=== PATIENT | female | born 1980 | race African-American/Black ===

== ENCOUNTER 2018-10-12 14:43 | Inpatient (IN) | payer OTHER ==
[~2018-10-12] VITALS: Ht 157.5 cm; Wt 57.4 kg
[2018-10-12 16:25] VITALS: PULSE 66
[2018-10-12 16:30] VITALS: Ht 157.5 cm; Wt 57.4 kg
[2018-10-12 16:32] VITALS: BP 124/78; PULSE 61; RESP 18
[2018-10-12] MEDS ORDERED: no medication (18:17)
--- NOTE | 2018-10-12 18:48 | HP ---
Date/Time of Note Date/Time of Note DATE: 10/12/18 TIME: 18:35 Assessment/Plan VTE Prophylaxis SCD applied (from Nsg): Yes Pharmacological prophylaxis: NA/contraindicated Pharm contraindication: low risk/ambulating Lines/Catheters IV Catheter Type (from Nrs): Saline Lock Assessment/Plan Assessment/Plan 38 yo woman history of migraine presents with headache and loss of balance #Headache #Loss of balance - Lesion appears to be either cerebellar, R vestibular, or R inner or middle ear. - Basic CBC, CMP, TSH. - Start with MRI brain to rule out stroke. - In case of vestibular dysfunction will plan for high dose steroid taper - Depending on MRI results will consider neurology consult. - Excedrin prn migraine symptoms. SCD: DVT GI: None HPI/ROS Admit Date/Time Admit Date/Time Oct 12, 2018 at 16:07 Hx of Present Illness Ms. Monaco is a soft-spoken 38 yo woman with history of migraine who presents with headache and loss of balance. She was in her usual state of health until 3 days ago when she developed progre ssive onset, throbbing, L sided headache that migrated to the L side of the head. Headache improves with OTC analgesics but dizziness has progressively worsened. Specifically, feels R face numbness, loss of balance, R ear tinnitus, and slightly diminished R sided hearing. During this time also poor appetite, nauseated, and had one episode of nonbloody emesis. She typically gets migraine headache monthly with her menses; resolves with [facility] brand OTC relief (acetaminophen+ASA+caffine). Has tried sumatriptan in the past but it caused troublesome visual hallucinations. 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 Transferred to [facility] for insurance reasons. ROS She denies fever, chills, night sweats, weight loss; denies sore throat, nasal congestion, or other URI symptoms; denies vision changes, vertigo; denies chest pain/pressure/palpitations, dyspnea, cough, abdominal pain, diarrhea, constipation, dysuria, hematuria. PMH/Family/Social Past Medical History Migraine headaches Coded Allergies: No Known Allergy (Unverified , 10/12/18) Past Surgical History Past Surgical Hx: no surgical history Family History Significant Family History: no pertinent family hx Social History Alcohol Use: none Smoking Status: Never smoker Drug Use: none Exam/Review of Systems Vital Signs Vitals Vital Signs Date Temp Pulse Resp B/P (MAP) Pulse Ox O2 O2 Flow FiO2 Time Delivery Rate 10/12/18 97.8 61 18 124/78 95 Room Air 16:32 (93) Exam Exam Gen: Well developed young woman in no acute distress Eyes: PERRL, no icterus. No nystagmus. HEENT: Moist mucous membranes, clear oropharynx, no posterior pharyngeal erythema or exudates. Neck: Supple, nontender, no lymphadenopathy Card: Regular rate and rhythm, no murmurs Pulm: Clear to auscultation bilaterally Abd: Soft, nontender, nondistended. Ext: No cyanosis/clubbing/edema NEURO CN: Diminished R face sensation to light touch. Diminished R ear hearing to finger rub. Otherwise EOMI, facial muscles move symmetrically, tongue midline, head turn and shoulder shrug strong. Balance: [id number] rapid bilaterally with no dysmetria. Motor: 5/5 strength in all test upper and lower muscle groups Gait: Patient unable to stand without falling to the R side, even with eyes open. Able to maintain balance only with a balancing hand on each shoulder. Gait not attempted. SHANNON MAIER MD Oct 12, 2018 18:46
[2018-10-12] MEDS ORDERED: ACETAMINOPHEN 325 MG TAB PO PRN (19:00)
[2018-10-12] MEDS ORDERED: ONDANSETRON 4 MG INJ IV PRN (19:00)
[2018-10-12] MEDS ORDERED: ASA/ACETAMINOPHEN/CAFF TAB PO PRN (19:00)
[2018-10-12] MEDS ORDERED: NACL 0.9% 3 ML SYG IV SCH (19:00)
[2018-10-12 20:00] VITALS: BP 112/67; PULSE 68; RESP 19
[2018-10-13] VITALS: BP 116/69; PULSE 70; PULSE 76; RESP 19
[2018-10-13 04:00] VITALS: BP 107/54; PULSE 61; PULSE 65; RESP 19
[2018-10-13 07:32] VITALS: BP 110/63; PULSE 65; RESP 19
[2018-10-13 08:00] VITALS: PULSE 66
--- NOTE | 2018-10-13 09:49 | PDOCDIS ---
Discharge Instructions DIAGNOSIS Discharge Diagnosis Migraine with aura CONDITION [id number] Patient Condition: [id number] Good HOME CARE INSTRUCTIONS: [id number] Diet Instructions: [id number] Regular ACTIVITY: [id number] Activity Restrictions: [id number] No Restrictions FOLLOW UP/APPOINTMENTS Follow-up Plan 1. Make an appointment with your primary care doctor in 1-2 weeks. 2. For migraine with severe headache take ibuprofen or Excedrin as tolerated. 3. If you develop new muscle weakness, numbness, or facial droop; return to the emergency room. SHANNON MAIER MD Oct 13, 2018 09:49
--- NOTE | 2018-10-13 14:25 | RADRPT ---
Vent Rate: 68 bpm RR Interval: 876 msec HI Interval: 165 msec QRS Duration: 83 msec QT Interval: 386 msec QTC Interval: 412 msec P-R-T Wallace: 70 - 61 - 55 degrees Sinus rhythm...normal P axis, V-rate 50- 99 RSR' in V1 or V2, probably normal variant...small R' only Electronically Signed By: Tanner Lerma
--- NOTE | 2018-10-13 16:40 | DS ---
Date/Time of Note Date/Time of Note DATE: 10/13/18 TIME: 16:38 Discharge Summary Admission/Discharge Info Admit Date/Time Oct 12, 2018 at 16:07 Discharge Date/Time Oct 13, 2018 at 11:30 Discharge Diagnosis Migraine with aura Patient Condition: Good Consults None Procedures None Hx of Present Illness Ms. Monaco is a soft-spoken 38 yo woman with history of migraine who presents with headache and loss of balance. She was in her usual state of health until 3 days ago when she developed progressive onset, throbbing, L sided headache that migrated to the L side of the head. Headache improves with OTC analgesics but dizziness has progressively worsened. Specifically, feels R face numbness, loss of balance, R ear tinnitus, and slightly diminished R sided hearing. During this time also poor appetite, nauseated, and had one episode of nonbloody emesis. She typically gets migraine headache monthly with her menses; resolves with [facility] brand OTC relief (acetaminophen+ASA+caffine). Has tried sumatriptan in the past but it caused troublesome visual hallucinations. 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 Transferred to [facility] for insurance reasons. Hospital Course An MRI brain was done. It was negative for ischemia or other concerning findings. CBC, BMP were unremarkable. The next morning the patient's symptoms had completely resolved. She was ambulating fine without loss of balance and Romberg test was negative. Home Meds Reported Medications [no medication] No Conflict Check 10/12/18 Follow-up Plan 1. Make an appointment with your primary care doctor in 1-2 weeks. 2. For migraine with severe headache take ibuprofen or Excedrin as tolerated. 3. If you develop new muscle weakness, numbness, or facial droop; return to the emergency room. Primary Care Provider Not On Staff Doctor Time spent on discharge: > 30 minutes Pending Labs Laboratory Tests Test 10/12/18 18:56 10/13/18 05:08 White Blood Count 5.2 10^3/ul (4.8-10.8) 5.6 10^3/ul (4.8-10.8) Red Blood Count 4.13 10^6/ul (4.20-5.40) 3.96 10^6/ul (4.20-5.40) Hemoglobin 11.9 g/dl (12.0-16.0) 11.7 g/dl (12.0-16.0) Hematocrit 36.8 % (37.0-47.0) 35.3 % (37.0-47.0) Mean Corpuscular Volume 89.1 fl (82.0-101.0) 89.1 fl (82.0-101.0) Mean Corpuscular 28.8 pg (29.0-33.0) 29.5 pg (29.0-33.0) Hemoglobin Mean Corpuscular 32.3 g/dl (32.0-37.0) 33.1 g/dl (32.0-37.0) Hemoglobin Concent Red Cell Distribution 12.4 % (11.5-14.5) 12.5 % (11.5-14.5) Width Platelet Count 235 10^3/UL (140-415) 217 10^3/UL (140-415) Mean Platelet Volume 11.1 fl (7.4-10.4) 11.5 fl (7.4-10.4) Immature Granulocytes % 0.200 % (0.001-0.429) 0.400 % (0.001-0.429) Neutrophils % 46.9 % (39.0-77.0) 36.6 % (39.0-77.0) Lymphocytes % 44.3 % (15.0-51.0) 52.9 % (15.0-51.0) Monocytes % 6.6 % (0.0-11.0) 8.1 % (0.0-11.0) Eosinophils % 1.4 % (0.0-7.0) 1.3 % (0.0-7.0) Basophils % 0.6 % (0.0-2.0) 0.7 % (0.0-2.0) Nucleated Red Blood Cells 0.0 /100WBC (0.0-0.0) 0.0 /100WBC (0.0-0.0) % Immature Granulocytes # 0.010 10^3/ul (0.0-0.031) 0.020 10^3/ul (0.0-0.031) Neutrophils # 2.4 10^3/ul (1.6-7.5) 2.0 10^3/ul (1.6-7.5) Lymphocytes # 2.3 10^3/ul (0.8-2.9) 2.9 10^3/ul (0.8-2.9) Monocytes # 0.3 10^3/ul (0.3-0.9) 0.5 10^3/ul (0.3-0.9) Eosinophils # 0.1 10^3/ul (0.0-0.5) 0.1 10^3/ul (0.0-0.5) Basophils # 0.0 10^3/ul (0.0-0.1) 0.0 10^3/ul (0.0-0.1) Nucleated Red Blood Cells 0.0 10^3/ul (0.0-0.0) 0.0 10^3/ul (0.0-0.0) # Sodium Level 142 mmol/L (135-144) 143 mmol/L (135-144) Potassium Level 3.5 mmol/L (3.5-5.1) 3.8 mmol/L (3.5-5.1) Chloride Level 106 mmol/L (97-110) 105 mmol/L (97-110) Carbon Dioxide Level 28 mmol/L (21-31) 26 mmol/L (21-31) Anion Gap 8 (5-13) 12 (5-13) Blood Urea Nitrogen 10 mg/dl (7-20) 12 mg/dl (7-20) Creatinine 0.53 mg/dl (0.44-1.00) 0.51 mg/dl (0.44-1.00) Est Glomerular Filtrat > 60 mL/min (>60) > 60 mL/min (>60) Rate mL/min Glucose Level 107 mg/dl (70-220) 76 mg/dl (70-220) Calcium Level 9.7 mg/dl (8.4-10.2) 9.4 mg/dl (8.4-10.2) Phosphorus Level 4.0 mg/dl (2.5-4.9) 4.8 mg/dl (2.5-4.9) Magnesium Level 2.0 mg/dl (1.7-2.5) 1.9 mg/dl (1.7-2.5) Total Bilirubin 0.2 mg/dl (0.2-1.3) 0.2 mg/dl (0.2-1.3) Direct Bilirubin 0.00 mg/dl (0.00-0.20) 0.00 mg/dl (0.00-0.20) Indirect Bilirubin 0.2 mg/dl (0-1.1) 0.2 mg/dl (0-1.1) Aspartate Amino 18 IU/L (15-46) 15 IU/L (15-46) Transf (AST/SGOT) Alanine 16 IU/L (13-69) 17 IU/L (13-69) Aminotransferase (ALT/SGPT ) Alkaline Phosphatase 53 IU/L (42-121) 52 IU/L (42-121) Total Protein 7.2 g/dl (6.1-8.1) 6.9 g/dl (6.1-8.1) Albumin 4.3 g/dl (3.3-4.9) 4.0 g/dl (3.3-4.9) Globulin 2.90 g/dl (1.3-3.2) 2.90 g/dl (1.3-3.2) Albumin/Globulin Ratio 1.48 1.37 Triglycerides Level 55 mg/dl (0-149) Cholesterol Level 128 mg/dl (100-200) LDL Cholesterol, 73 mg/dl Calculated HDL Cholesterol 44 mg/dl (34-82) Cholesterol/HDL Ratio 2.9 RATIO Thyroid Stimulating 1.980 MIU/L (0.465-4.680) Hormone (TSH) Hemoglobin A1c 5.5 % (0-5.9) SHANNON MAIER MD Oct 13, 2018 16:40
== END 2018-10-13 11:30 | disposition home or self-care (01) | DRG 103 ==
LOC: 6WM 16:07
PROVIDERS: ADMIT Internal Medicine; ATTEND Internal Medicine
DX: G43.109 Migraine with aura, not intractable, without status migrainosus (principal); H93.11 Tinnitus, right ear; R20.0 Anesthesia of skin
CPT/HCPCS: 70553; 80053; 80061; 83036; 83735; 84100; 84443; 85025; 93005